=== PATIENT | male | born 1975 ===

== ENCOUNTER 2017-06-09 10:37 | Emergency (ER) | payer OTHER ==
--- NOTE | 2017-06-09 10:58 | UC ---
Throat Pain/Nasal Jabier HPI - HPI Summary HPI Summary: 42 YEAR OLD MALE PRESENTS WITH COMPLAINS SORE THROAT AND SWOLLEN UVULA. - History of Current Complaint Stated Complaint: SORE THROAT Time Seen by Provider: 06/09/17 10:57 Hx Obtained From: Patient Onset/Duration: Sudden Onset Severity: Moderate Pain Scale Used: 0-10 Numeric - 5 Cough: Nonproductive Associated Signs & Symptoms: Positive: Dysphagia - Allergies/Home Medications Allergies/Adverse Reactions: Allergies Allergy/AdvReac Type Severity Reaction Status Date / Time No Known Allergies Allergy Verified 06/09/17 11:01 Home Medications: Home Medications Citalopram TAB* [Celexa TAB*] 1 tab PO DAILY 06/09/17 [History Confirmed ] Diphenhydramine HCl [Eql Allergy Relief] 25 mg PO ONCE PRN 06/09/17 [History Confirmed 06/09/17] Ssuhfpaeryhte-Cepluaxscbc-Xs [Theraflu Cold & Cough 10-20-20 mg] 1 packet PO ONCE PRN 06/09/17 [History Confirmed 06/09/17] PMH/Surg Hx/FS Hx/Imm Hx Previously Healthy: Yes - Surgical History Surgical History: None - Family History Known Family History: Positive: None - Social History Alcohol Use: None Review of Systems Constitutional: Negative Skin: Negative Eyes: Negative ENT: Sore Throat, Nasal Discharge, Sinus Congestion, Sinus Pain/Tenderness Respiratory: Cough Cardiovascular: Negative Gastrointestinal: Negative Genitourinary: Negative Motor: Negative Neurovascular: Negative Musculoskeletal: Negative Neurological: Negative Psychological: Negative All Other Systems Reviewed And Are Negative: Yes Physical Exam Triage Information Reviewed: Yes Vital Signs Reviewed: Yes Eye Exam: Normal ENT: Positive: Pharyngeal erythema, Nasal drainage, Tonsillar swelling, Sinus tenderness Dental Exam: Normal Neck exam: Normal Neck: Positive: 1 Respiratory Exam: Normal Cardiovascular Exam: Normal Abdominal Exam: Normal Musculoskeletal Exam: Normal Neurological Exam: Normal Psychological Exam: Normal Skin Exam: Normal Throat Pain/Nasal Course/Dx - Differential Dx/Diagnosis Provider Diagnoses: UVULITIS. PHARYNGITIS Discharge - Discharge Plan Condition: Stable Disposition: HOME Prescriptions: Amoxicillin/Clavulanate TAB* [Augmentin TAB 875*] 875 mg PO BID #20 tab LoraTADine TAB(NF) [Claritin 10 MG TAB(NF)] 10 mg PO DAILY #30 tab Magic M W2 Abner/Maal/Nyst/Lido* 5 ml SWISH SPIT QID PRN #120 ml PRN Reason: Pain predniSONE TAB* [Deltasone TAB*] 40 mg PO DAILY #10 tab Patient Education Materials: Uvulitis (ED) Referrals: No Primary Care Phys,NOPCP [Primary Care Provider] -
[2017-06-09] MEDS ORDERED: methylPREDNISolone 125 MG* 2 ML VIAL IM ONE (11:12)
[2017-06-09] MEDS ORDERED: Lidocaine 2% VISCOUS* 15 ML UDC SWISH SPIT ONE (11:12)
[2017-06-09] MEDS ORDERED: cefTRIAXone VIAL(*) 1,000 MG VIAL IM ONE (11:12)
[2017-06-09] MEDS ORDERED: Al Hydrox/Mg Hydrox/Simet LIQ* 30 ML UDC PO ONE (11:13)
[2017-06-09] MEDS ORDERED: Lidocaine 1% MPF* 2 ML VIAL INJ ONE (11:21)
== END 2017-06-09 11:55 | disposition home or self-care (01) ==
LOC: UCEAST 10:37
DX: J02.9 Acute pharyngitis, unspecified (principal); K12.2 Cellulitis and abscess of mouth
CPT/HCPCS: 87651; 96372; 99202; A9270-GY; G0463; J0696; J2930